=== PATIENT | female | born 1970 | race Caucasian/White ===

== ENCOUNTER 2016-08-12 18:17 | Emergency (ER) | payer OTHER ==
[~2016-08-12] VITALS: Ht 170.1 cm; Wt 131.1 kg
[~2016-08-12 18:17] MED LIST: CIPROFLOXACIN500 MG PO; DAYPRO600 M1 PO; EFFEXOR XR75 MG; EFFEXOR25 MG PO; LISINOPRIL10 MG; MOTRIN800 MG PO; OMEPRAZOLE20 MG; VICODIN 500 MG-1 TAB PO; ZOLOFT25 MG PO
[2016-08-12 19:15] LABS: BASO % 0.2 % (0.0-1.0); EOS % 0.1 % (1.0-4.0); HEMATOCRIT 43.8 % (37.0-47.0); HEMOGLOBIN 14.4 g/dl (12.0-16.0); LYMPH # 1.4 10*3/uL (1.3-4.4); LYMPH % 10.3 % (27.0-41.0); MEAN CELL VOLUME 84.7 fl (81.0-99.0); MEAN CORPUSCULAR HGB 27.9 pg (27.0-31.0); MEAN CORPUSCULAR HGB CONC 32.9 g/dl (33.0-37.0); MONO # 0.8 10*3/uL (0.1-1.0); MONO % 6.2 % (3.0-9.0); NEUT # 11.3 10*3/uL (2.3-7.9); NEUT % 82.9 % (47.0-73.0); PLATELET COUNT AUTOMATED 280 10*3/uL (130-400); RED BLOOD COUNT 5.17 10*6/uL (4.10-5.10); RED CELL DISTRI WIDTH 13.7 % (0-14.5); WHITE BLOOD COUNT 13.7 10*3/uL (4.8-10.8)
[2016-08-12 19:32] LABS: BILIRUBIN, TOTAL 0.6 mg/dl (0.2-1.0); MAGNESIUM 2.3 mg/dL (1.5-2.1); POTASSIUM 3.9 mmol/L (3.5-5.1); TOTAL PROTEIN 7.1 gm/dL (6.4-8.2)
[2016-08-12 19:35] LABS: TROPONIN I 1.19 ng/ml (<0.045)
[2016-08-12 19:54] LABS: PROTHROMBIN TIME 10.5 SECONDS (9.0-12.4)
[2016-08-12] MEDS ORDERED: CAMRESE 0.15-01 EACH PO (20:09)
[2016-08-12 20:18] LABS: BILIRUBIN 1+ (NEGATIVE); BLOOD NEGATIVE (NEGATIVE); CLARITY CLOUDY (CLEAR); COLOR YELLOW (YELLOW); GLUCOSE NEGATIVE (NEGATIVE); KETONE NEGATIVE (NEGATIVE); LEUKO ESTERASE NEGATIVE (NEGATIVE); NITRITE NEGATIVE (NEGATIVE); PH 5.5 (5.0-9.0); PROTEIN 1+ (NEGATIVE); SPECIFIC GRAVITY >= 1.030 (1.005-1.030)
[2016-08-12 20:32] LABS: BACTERIA 3+; EPITHELIAL CELLS 15-20; MUCOUS TRACE; RBC 0-2 rbc/hpf (0-2); URINE REFLEX COMMENT YES (NO)
== END 2016-08-12 23:38 | disposition short-term general hospital (02) ==
LOC: ED 18:17
PROVIDERS: Nurse Practitioner Family
DX: A41.9 Sepsis, unspecified organism (principal); I21.4 Non-ST elevation (NSTEMI) myocardial infarction; J18.9 Pneumonia, unspecified organism; Z79.899 Other long term (current) drug therapy

== ENCOUNTER 2017-03-21 18:15 | Emergency (ER) | payer OTHER ==
[~2017-03-21] VITALS: Wt 129.3 kg
[~2017-03-21 18:15] MED LIST changes: +CAMRESE 0.15-01 EACH PO
[2017-03-21 19:31] LABS: BILIRUBIN NEGATIVE (NEGATIVE); BLOOD NEGATIVE (NEGATIVE); CLARITY SL CLOUDY (CLEAR); COLOR YELLOW (YELLOW); GLUCOSE NEGATIVE (NEGATIVE); KETONE NEGATIVE (NEGATIVE); LEUKO ESTERASE NEGATIVE (NEGATIVE); NITRITE NEGATIVE (NEGATIVE); SPECIFIC GRAVITY >= 1.030 (1.005-1.030); UROBILINOGEN 0.2 E.U./dl (0.2-1.0)
[2017-03-21 19:47] LABS: BACTERIA 1+; EPITHELIAL CELLS 0-2; RBC 0-2 rbc/hpf (0-2)
[2017-03-21 19:56] LABS: BASO # 0.1 10*3/uL (0.0-0.1); BASO % 0.4 % (0.0-1.0); EOS # 0.2 10*3/uL (0.0-0.4); EOS % 1.1 % (1.0-4.0); HEMOGLOBIN 14.4 g/dl (12.0-16.0); LYMPH # 2.9 10*3/uL (1.3-4.4); LYMPH % 21.6 % (27.0-41.0); MEAN CELL VOLUME 85.8 fl (81.0-99.0); MEAN CORPUSCULAR HGB 28.1 pg (27.0-31.0); MEAN CORPUSCULAR HGB CONC 32.7 g/dl (33.0-37.0); MEAN PLATELET VOLUME 9.9 fl (9.6-12.3); MONO # 0.7 10*3/uL (0.1-1.0); MONO % 5.4 % (3.0-9.0); NEUT # 9.5 10*3/uL (2.3-7.9); NEUT % 71.2 % (47.0-73.0); PLATELET COUNT AUTOMATED 293 10*3/uL (130-400); RED BLOOD COUNT 5.13 10*6/uL (4.10-5.10); RED CELL DISTRI WIDTH 12.6 % (0-14.5); WHITE BLOOD COUNT 13.4 10*3/uL (4.8-10.8)
[2017-03-21 20:11] LABS: ALBUMIN 3.3 gm/dl (3.1-4.5); ALKALINE PHOSPHATASE 88 U/L (45-117); BUN 15 mg/dl (7-24); CHLORIDE 104 mmol/L (98-107); CREATININE 1.09 mg/dL (0.55-1.02); LIPASE 407 U/L (73-393); POTASSIUM 4.2 mmol/L (3.5-5.1); SGOT/AST 11 IU/L (3-35); SGPT/ALT 18 U/L (12-78); SODIUM 138 mmol/L (136-145); TOTAL PROTEIN 7.3 gm/dL (6.4-8.2)
[2017-03-22] MEDS ORDERED: ZOFRAN ODT4 MG SL (00:04)
[2017-03-22] MEDS ORDERED: CEFUROXIME AXE250 MG PO (00:04)
[2017-03-22] MEDS ORDERED: DIFLUCAN150 MG PO (00:04)
== END 2017-03-22 00:19 | disposition home or self-care (01) ==
LOC: ED 18:15
PROVIDERS: Emergency Medicine Emergency Medical Services
DX: K85.90 Acute pancreatitis without necrosis or infection, unspecified (principal); R82.71 Bacteriuria; Z79.899 Other long term (current) drug therapy

== ENCOUNTER 2018-04-29 14:36 | Emergency (ER) | payer OTHER ==
[~2018-04-29] VITALS: Ht 170.1 cm; Wt 129.7 kg
--- NOTE | ~2018-04-29 | EKG ---
[place], [place] ELECTROCARDIOGRAM REPORT NAME: GODFREY ARMSTRNOG UNIT #: [id number] ROOM: DOCTOR: EPIPHANY DRAFT REPORT BIRTHDATE: [birth year] [facility] Test Date: 2018-04-29 Test Time: 14:46:29 Pat Name: GODFREY ARMSTRONG Department: ER Room: 8 Gender: F Scorekeeper: EKG.VT : 1970 Requested By: TORRES ZAPATA Order Number: [id number] Reading MD: Silver Fernandez MD Measurements Intervals [place] Rate: 100 P: 71 WI: 158 QRS: -25 QRSD: 124 T: 100 QT: 359 QTc: 463 Interpretive Statements Sinus tachycardia Left bundle branch block Electronically Signed On 05-01-2018 8:09:57 PST by Silver Fernandez MD CM:EKGRPT:ELECTROCARDIOGRAM REPORT [id number] TORRES ZAPATA EPIPHANY DRAFT REPORT TORRES ZAPATA
[~2018-04-29 14:36] MED LIST changes: +CEFUROXIME AXE250 MG PO; +DIFLUCAN150 MG PO; +ZOFRAN ODT4 MG SL
[2018-04-29 15:07] LABS: BASO % 0.4 % (0.0-1.0); EOS # 0.1 10*3/uL (0.0-0.4); EOS % 1.5 % (1.0-4.0); HEMATOCRIT 42.9 % (37.0-47.0); HEMOGLOBIN 13.9 g/dl (12.0-16.0); LYMPH # 1.7 10*3/uL (1.3-4.4); LYMPH % 18.7 % (27.0-41.0); MEAN CELL VOLUME 84.6 fl (81.0-99.0); MEAN CORPUSCULAR HGB 27.4 pg (27.0-31.0); MEAN CORPUSCULAR HGB CONC 32.4 g/dl (33.0-37.0); MONO # 0.6 10*3/uL (0.1-1.0); MONO % 6.3 % (3.0-9.0); NEUT # 6.7 10*3/uL (2.3-7.9); NEUT % 72.8 % (47.0-73.0); PLATELET COUNT AUTOMATED 299 10*3/uL (130-400); RED BLOOD COUNT 5.07 10*6/uL (4.10-5.10); RED CELL DISTRI WIDTH 13.2 % (0-14.5); WHITE BLOOD COUNT 9.3 10*3/uL (4.8-10.8)
[2018-04-29 15:26] LABS: ALBUMIN 3.1 gm/dl (3.1-4.5); ALKALINE PHOSPHATASE 83 U/L (45-117); BUN 10 mg/dl (7-24); CHLORIDE 106 mmol/L (98-107); CREATININE 0.99 mg/dL (0.55-1.02); POTASSIUM 3.9 mmol/L (3.5-5.1); SGOT/AST 9 IU/L (3-35); SGPT/ALT 14 U/L (12-78); SODIUM 139 mmol/L (136-145)
[2018-04-29 15:27] LABS: TROPONIN I < 0.015 ng/ml (<0.045)
[2018-04-29] MEDS ORDERED: PREDNISONE10 MG PO (15:40)
[2018-04-29] MEDS ORDERED: CLARITIN10 MG PO (15:40)
[2018-04-29] MEDS ORDERED: FLONASE ALLERG9.9 ML NAS (15:40)
== END 2018-04-29 15:36 | disposition home or self-care (01) ==
LOC: ED 14:36
PROVIDERS: Nurse Practitioner Family
DX: J20.9 Acute bronchitis, unspecified (principal); R03.0 Elevated blood-pressure reading, without diagnosis of hypertension; I25.2 Old myocardial infarction; Z79.899 Other long term (current) drug therapy

== ENCOUNTER → 2018-05-30 | Outpatient (CLI) | payer OTHER ==
[~2018-05-30] MED LIST changes: +CLARITIN10 MG PO; +FLONASE ALLERG9.9 ML NAS; +PREDNISONE10 MG PO
== END | disposition home or self-care (01) ==
LOC: RAD 15:22
DX: J34.89 Other specified disorders of nose and nasal sinuses (principal); R09.89 Other specified symptoms and signs involving the circulatory and respiratory systems

== ENCOUNTER → 2018-08-20 | Emergency (ER) | payer OTHER ==
[~2018-08-20] VITALS: Ht 170.1 cm; Wt 135.2 kg
== END ==
LOC: ED 18:52
DX: M71.21 Synovial cyst of popliteal space [Baker], right knee (principal); R60.0 Localized edema; Z79.899 Other long term (current) drug therapy; Z90.49 Acquired absence of other specified parts of digestive tract

== ENCOUNTER → 2019-01-23 | Outpatient (CLI) | payer OTHER ==
[2019-01-23 09:04] LABS: BUN 12 mg/dl (7-24); CHLORIDE 108 mmol/L (98-107); CHOLESTEROL 145 mg/dL (<200); CREATININE 1.03 mg/dL (0.55-1.02); HDL CHOLESTEROL 41 mg/dl (40-60); LDL CHOLESTEROL 74 mg/dL (9-159); POTASSIUM 4.2 mmol/L (3.5-5.1); SODIUM 140 mmol/L (136-145); TRIGLYCERIDES 152 mg/dl (<150); VLDL CHOLESTEROL 30 mg/dL (6-40)
== END | disposition home or self-care (01) ==
LOC: LAB 08:18
PROVIDERS: Family Medicine
DX: E78.2 Mixed hyperlipidemia (principal); I10 Essential (primary) hypertension

== ENCOUNTER → 2020-04-09 | Outpatient (CLI) | payer OTHER | END | disposition home or self-care (01) | LOC: COVID19 15:29 | PROVIDERS: ATTEND Internal Medicine | DX: U07.1 COVID-19 (principal) ==

== ENCOUNTER 2020-04-30 19:08 | Emergency (ER) | payer OTHER ==
[~2020-04-30] VITALS: Ht 170.1 cm; Wt 136.1 kg
== END 2020-04-30 20:33 | disposition home or self-care (01) ==
LOC: ED 19:08
DX: G45.9 Transient cerebral ischemic attack, unspecified (principal); E03.9 Hypothyroidism, unspecified; E78.00 Pure hypercholesterolemia, unspecified; F32.9 Major depressive disorder, single episode, unspecified; Z79.899 Other long term (current) drug therapy

== ENCOUNTER → 2020-05-30 | Outpatient (CLI) | payer OTHER | END | disposition home or self-care (01) | LOC: CARD 05-27 14:00 → US 14:00 | PROVIDERS: ATTEND Family Medicine | DX: I65.23 Occlusion and stenosis of bilateral carotid arteries (principal); Z11.52 Encounter for screening for COVID-19 ==

== ENCOUNTER → 2020-07-26 | Outpatient (CLI) | payer OTHER ==
[2020-07-26 10:47] LABS: BASO % 0.5 % (0.0-1.0); EOS # 0.2 10*3/uL (0.0-0.4); EOS % 3.1 % (1.0-4.0); HEMATOCRIT 46.6 % (37.0-47.0); LYMPH # 1.6 10*3/uL (1.3-4.4); LYMPH % 21.5 % (27.0-41.0); MEAN CELL VOLUME 88.6 fl (81.0-99.0); MEAN CORPUSCULAR HGB 27.8 pg (27.0-31.0); MEAN CORPUSCULAR HGB CONC 31.3 g/dl (33.0-37.0); MONO # 0.5 10*3/uL (0.1-1.0); MONO % 6.8 % (3.0-9.0); NEUT % 67.8 % (47.0-73.0); PLATELET COUNT AUTOMATED 265 10*3/uL (130-400); RED BLOOD COUNT 5.26 10*6/uL (4.10-5.10); RED CELL DISTRI WIDTH 14.1 % (0-14.5); WHITE BLOOD COUNT 7.4 10*3/uL (4.8-10.8)
[2020-07-26 11:16] LABS: ALBUMIN 3.6 gm/dl (3.1-4.5); ALKALINE PHOSPHATASE 135 U/L (45-117); BUN 18 mg/dl (7-24); CHLORIDE 108 mmol/L (98-107); CHOLESTEROL 132 mg/dL (<200); CREATININE 0.95 mg/dL (0.55-1.02); HDL CHOLESTEROL 52 mg/dl (40-60); LDL CHOLESTEROL 61 mg/dL (9-159); POTASSIUM 4.3 mmol/L (3.5-5.1); SGOT/AST 25 IU/L (3-35); SGPT/ALT 48 U/L (12-78); SODIUM 142 mmol/L (136-145); TOTAL PROTEIN 7.4 gm/dL (6.4-8.2); TRIGLYCERIDES 93 mg/dl (<150); VLDL CHOLESTEROL 19 mg/dL (6-40)
== END | disposition home or self-care (01) ==
LOC: LAB 10:21
PROVIDERS: ATTEND Family Medicine
DX: U07.1 COVID-19 (principal); D68.59 Other primary thrombophilia; G45.9 Transient cerebral ischemic attack, unspecified

== ENCOUNTER → 2021-04-04 | Outpatient (CLI) | payer OTHER ==
[2021-04-04 10:45] LABS: BUN 20 mg/dl (7-24); CHLORIDE 107 mmol/L (98-107); CHOLESTEROL 138 mg/dL (<200); CREATININE 0.91 mg/dL (0.55-1.02); LDL CHOLESTEROL 69 mg/dL (9-159); POTASSIUM 4.9 mmol/L (3.5-5.1); SODIUM 141 mmol/L (136-145); TRIGLYCERIDES 82 mg/dl (<150)
== END | disposition home or self-care (01) ==
LOC: LAB 10:02
PROVIDERS: ATTEND Family Medicine
DX: I10 Essential (primary) hypertension (principal); E78.2 Mixed hyperlipidemia; R73.9 Hyperglycemia, unspecified

== ENCOUNTER 2021-07-21 12:49 | Emergency (ER) | payer OTHER ==
[~2021-07-21] VITALS: Wt 131.5 kg
== END 2021-07-21 16:21 | disposition home or self-care (01) ==
LOC: ED 12:49
DX: S90.32XA Contusion of left foot, initial encounter (principal); S90.31XA Contusion of right foot, initial encounter; Z79.899 Other long term (current) drug therapy; Z90.49 Acquired absence of other specified parts of digestive tract; Z90.89 Acquired absence of other organs; W20.8XXA Other cause of strike by thrown, projected or falling object, initial encounter; Y93.89 Activity, other specified; Y92.89 Other specified places as the place of occurrence of the external cause; Y99.8 Other external cause status

== ENCOUNTER 2021-10-24 20:09 | Emergency (ER) | payer OTHER ==
[2021-10-24] MEDS ORDERED: NAPROSYN500 MG PO (22:46)
== END 2021-10-24 23:21 | disposition home or self-care (01) ==
LOC: ED 20:09
DX: S93.602A Unspecified sprain of left foot, initial encounter (principal); Z79.899 Other long term (current) drug therapy; X50.9XXA Other and unspecified overexertion or strenuous movements or postures, initial encounter; Y93.89 Activity, other specified; Y92.89 Other specified places as the place of occurrence of the external cause; Y99.8 Other external cause status

== ENCOUNTER → 2021-12-25 | Outpatient (CLI) | payer OTHER ==
[~2021-12-25] MED LIST changes: +NAPROSYN500 MG PO
[2021-12-25 10:14] LABS: BASO # 0.1 10*3/uL (0.0-0.1); BASO % 0.7 % (0.0-1.0); EOS # 0.3 10*3/uL (0.0-0.4); EOS % 2.5 % (1.0-4.0); HEMATOCRIT 43.7 % (37.0-47.0); LYMPH # 1.8 10*3/uL (1.3-4.4); LYMPH % 17.4 % (27.0-41.0); MEAN CELL VOLUME 87.1 fl (81.0-99.0); MEAN CORPUSCULAR HGB 26.5 pg (27.0-31.0); MEAN CORPUSCULAR HGB CONC 30.4 g/dl (33.0-37.0); MONO # 0.6 10*3/uL (0.1-1.0); MONO % 6.2 % (3.0-9.0); NEUT # 7.5 10*3/uL (2.3-7.9); NEUT % 72.9 % (47.0-73.0); PLATELET COUNT AUTOMATED 296 10*3/uL (130-400); RED BLOOD COUNT 5.02 10*6/uL (4.10-5.10); RED CELL DISTRI WIDTH 12.9 % (0-14.5); WHITE BLOOD COUNT 10.2 10*3/uL (4.8-10.8)
[2021-12-25 10:32] LABS: ALKALINE PHOSPHATASE 148 U/L (45-117); BUN 16 mg/dl (7-24); CHLORIDE 109 mmol/L (98-107); CHOLESTEROL 145 mg/dL (<200); CREATININE 1.05 mg/dL (0.55-1.02); LDL CHOLESTEROL 67 mg/dL (9-159); POTASSIUM 4.3 mmol/L (3.5-5.1); SGOT/AST 21 IU/L (3-35); SGPT/ALT 28 U/L (12-78); SODIUM 140 mmol/L (136-145); TRIGLYCERIDES 85 mg/dl (<150)
== END ==
LOC: LAB 09:35
PROVIDERS: Family Medicine; ATTEND Chiropractor
DX: E78.2 Mixed hyperlipidemia (principal); M13.0 Polyarthritis, unspecified; M54.50 Low back pain, unspecified; M54.2 Cervicalgia; R53.83 Other fatigue

== ENCOUNTER 2023-10-10 09:52 | Emergency (ER) | payer OTHER ==
[~2023-10-10] VITALS: Ht 170.1 cm; Wt 149.7 kg
[2023-10-10] MEDS ORDERED: ACETAMINOPHEN 325 MG TAB PO ONE (11:45)
[2023-10-10] MEDS ORDERED: MELOXICAM15 MG PO (11:45)
== END 2023-10-10 12:21 | disposition home or self-care (01) ==
LOC: ED 09:52
DX: M25.562 Pain in left knee (principal); E78.00 Pure hypercholesterolemia, unspecified; F32.A Depression, unspecified; E03.9 Hypothyroidism, unspecified; Z90.49 Acquired absence of other specified parts of digestive tract; Z90.89 Acquired absence of other organs; Z98.890 Other specified postprocedural states

== ENCOUNTER 2023-11-04 16:13 | Emergency (ER) | payer OTHER ==
[~2023-11-04] VITALS: Ht 170.1 cm; Wt 147.4 kg
[~2023-11-04 16:13] MED LIST changes: +MELOXICAM15 MG PO
[2023-11-04] MEDS ORDERED: methylPREDNISolone sod succ 125 MG VIAL IM ONE (16:50)
[2023-11-04] MEDS ORDERED: Acetaminophen/Hydrocodone HP 10/325 PO ONE (16:50)
[2023-11-04] MEDS ORDERED: HYDROCODONE-AC1 EAC1 PO (17:13)
[2023-11-04] MEDS ORDERED: PREDNISONE50 MG PO (17:13)
== END 2023-11-04 17:42 | disposition home or self-care (01) ==
LOC: ED 16:13
DX: Z79.899 Other long term (current) drug therapy (principal); M54.42 Lumbago with sciatica, left side; M17.12 Unilateral primary osteoarthritis, left knee

== ENCOUNTER 2023-11-10 12:25 | Emergency (ER) | payer OTHER ==
[~2023-11-10] VITALS: Ht 167.6 cm; Wt 136.1 kg
[~2023-11-10 12:25] MED LIST changes: +HYDROCODONE-AC1 EAC1 PO; +PREDNISONE50 MG PO
[2023-11-10] MEDS ORDERED: BUPIVACAINE 0.25% 10 ML VIAL IJ ONE (12:35)
[2023-11-10] MEDS ORDERED: Betamethasone ACE/Betamethas 30 MG/5 ML VIAL IJ ONE (12:35)
[2023-11-10] MEDS ORDERED: HYDROmorphONE Hydrochloride 1 MG/ML SYR IM ONE (12:50)
== END 2023-11-10 13:07 | disposition home or self-care (01) ==
LOC: ED 12:25
DX: M54.50 Low back pain, unspecified (principal); M25.562 Pain in left knee; E78.00 Pure hypercholesterolemia, unspecified; F32.A Depression, unspecified; Z90.49 Acquired absence of other specified parts of digestive tract; Z90.89 Acquired absence of other organs; Z98.890 Other specified postprocedural states

== ENCOUNTER → 2024-10-30 | Outpatient (CLI) | payer OTHER | END | disposition home or self-care (01) | LOC: LAB 10:22 | PROVIDERS: ATTEND Student in an Organized Health Care Education/Training Program | DX: E55.9 Vitamin D deficiency, unspecified (principal); E44.1 Mild protein-calorie malnutrition; E66.01 Morbid (severe) obesity due to excess calories ==